=== PATIENT | female | born 1980 | race Hispanic/Latino ===

== ENCOUNTER 2017-07-08 12:10 | Inpatient (IN) | payer OTHER ==
[~2017-07-08] VITALS: Ht 162.6 cm; Wt 97.5 kg
[2017-07-08 13:00] LABS: HEMATOCRIT 33.8 % (36-48); MEAN CORPUSCULAR HEMOGLOBIN 31.8 pg (27.0-33.0); MEAN CORPUSCULAR HGB CONC 35.2 g/dL (32.0-36.0); MEAN CORPUSCULAR VOLUME 90.3 fL (79-99); PLATELET COUNT (AUTO) 235 K/uL (130-400); RED BLOOD CELL COUNT(AUTO) 3.74 MIL/uL (4.00-5.50); RED CELL DISTRIBUTION WIDTH 13.4 % (11.0-15.5); WHITE BLOOD COUNT (AUTO) 8.1 K/uL (4.8-10.8)
[2017-07-08] MEDS ORDERED: ALBUTEROL SULFATE/IPRATROPIUM 103/18 MCG/PUFF 14.7 GM INHR IH SCH (13:00)
[2017-07-08] MEDS ORDERED: CALDOLOR 800MG+NS 250ML 250 ML IV PRN (13:00)
[2017-07-08] MEDS ORDERED: LACTATED RINGERS 1000ML 1,000 ML IV SCH ×2 (13:00→14:35)
[2017-07-08] MEDS ORDERED: CEFAZOLIN SODIUM 1 GM VIAL IVP PRN (13:00)
[2017-07-08] MEDS ORDERED: DURAMORPH PF1 MG/ML 10ML AMP IV ONE (13:34)
[2017-07-08] MEDS ORDERED: OXYTOCIN 10 UNIT/1ML 10ML VIAL ONE (13:38)
[2017-07-08] MEDS ORDERED: CEFAZOLIN SODIUM 1 GM VIAL IVP ONE (13:55)
[2017-07-08] MEDS ORDERED: ALBUTEROL SULFATE 0.083% 2.5 MG/3 ML INH IH SCH (14:00)
[2017-07-08] MEDS ORDERED: FENTANYL CITRATE PF 50 MCG/1 ML 2ML VIAL ONE (14:05)
[2017-07-08] MEDS ORDERED: MIDAZOLAM HCL 1 MG/ML 2ML VIAL ONE (14:05)
[2017-07-08] MEDS ORDERED: OXYTOCIN-LR 20 UNITS/1000 ML 1,000 ML IV PRN (14:35)
[2017-07-08] MEDS ORDERED: LANOLIN 30GM OINTMENT TP PRN (14:45)
[2017-07-08] MEDS ORDERED: DIPHENHYDRAMINE HCL 25 MG CAPSULE PO PRN (14:45)
[2017-07-08] MEDS ORDERED: PROMETHAZINE HCL 25 MG/ML 1ML AMPULE IM PRN ×2 (14:45→15:45)
[2017-07-08] MEDS ORDERED: ACETAMINOPHEN EXTRA STRENGTH 500 MG TABLET PO PRN (14:45)
[2017-07-08] MEDS ORDERED: HYDROCODONE/ACETAMINOPHEN 5/325 MG TAB PO PRN ×3 (14:45→15:45)
[2017-07-08] MEDS ORDERED: MEPERIDINE-PF 75 MG/ML SYG IM PRN (14:45)
[2017-07-08] MEDS ORDERED: ACETAMINOPHEN-CODEINE 300/30MG TAB PO PRN (14:45)
[2017-07-08] MEDS ORDERED: SODIUM CHLORIDE 0.9% 10 ML VIAL IVP PRN (14:45)
[2017-07-08] MEDS ORDERED: BISACODYL 10 MG SUPP.RECT RC PRN (14:45)
[2017-07-08] MEDS ORDERED: DEXTROSE 5 %-0.45 % NACL 1,000 ML IV PRN (14:45)
[2017-07-08] MEDS ORDERED: NALOXONE HCL 0.4 MG/1 ML ML IVP PRN ×2 (15:45)
[2017-07-08] MEDS ORDERED: ONDANSETRON HCL 4 MG/2 ML VIAL IVP PRN ×2 (15:45)
[2017-07-08] MEDS ORDERED: MORPHINE SULFATE 2 MG/ML 1ML SYG IVP PRN (15:45)
[2017-07-08] MEDS ORDERED: DiphenhydrAMINE HCL 50 MG/ML VIAL IVP PRN (15:45)
[2017-07-08] MEDS ORDERED: METOCLOPRAMIDE 10 MG/2 ML VIAL IVP PRN (15:45)
[2017-07-08] MEDS ORDERED: ONDANSETRON HCL 4 MG/2 ML 8 MG in SODIUM CHLORIDE 0.9% 50 ML IVP NR (15:45)
[2017-07-08] MEDS ORDERED: EPHEDRINE SULFATE 50 MG/ML AMPULE IVP PRN (15:45)
[2017-07-08 16:24] VITALS: BP 116/77
[2017-07-08] MEDS: HYDROCODONE/ACETAMINOPHEN 5/325 MG TAB PO PRN (17:02)
[2017-07-08] MEDS ORDERED: OXYTOCIN 10 USP UNITS/ML ONE (18:57)
[2017-07-08 19:18] VITALS: BP 110/68
[2017-07-08] MEDS: DOCUSATE SODIUM 100 MG CAP PO SCH (21:00)
[2017-07-08] MEDS: CALDOLOR 800MG+NS 250ML 250 ML IV SCH (22:35)
[2017-07-08 23:18] VITALS: BP 107/71
[2017-07-09 02:20] VITALS: BP 113/62
[2017-07-09] MEDS: CALDOLOR 800MG+NS 250ML 250 ML IV SCH (06:00)
[2017-07-09] MEDS: IBUPROFEN 800 MG TAB PO SCH ×2 (06:45→13:44)
[2017-07-09 06:46] LABS: HEMATOCRIT 28.9 % (36-48); MEAN CORPUSCULAR HEMOGLOBIN 31.9 pg (27.0-33.0); MEAN CORPUSCULAR HGB CONC 34.6 g/dL (32.0-36.0); MEAN CORPUSCULAR VOLUME 92.1 fL (79-99); PLATELET COUNT (AUTO) 180 K/uL (130-400); RED BLOOD CELL COUNT(AUTO) 3.14 MIL/uL (4.00-5.50); RED CELL DISTRIBUTION WIDTH 13.4 % (11.0-15.5); WHITE BLOOD COUNT (AUTO) 11.2 K/uL (4.8-10.8)
[2017-07-09] MEDS: DOCUSATE SODIUM 100 MG CAP PO SCH (08:05)
[2017-07-09] MEDS: SIMETHICONE 80 MG TAB.CHEW PO PRN ×2 (08:05→13:44)
[2017-07-09] MEDS: HYDROCODONE/ACETAMINOPHEN 5/325 MG TAB PO PRN ×2 (08:15→13:46)
[2017-07-09] MEDS ORDERED: LIDOCAINE 5% TOPICAL PATCH TP SCH (09:00)
[2017-07-09 09:08] VITALS: BP 102/61
[2017-07-09 11:11] VITALS: BP 115/69
[2017-07-09 11:14] LABS: HEPATITIS Bs ANTIGEN SCREEN P Negative (Negative)
[2017-07-09 15:14] VITALS: BP 111/66
[2017-07-09] MEDS ORDERED: DOCU-116 PO (15:19)
[2017-07-09] MEDS ORDERED: MO8B PO (15:20)
[2017-07-09] MEDS ORDERED: ACET1TAB25 PO (15:21)
== END 2017-07-09 16:45 | disposition home or self-care (01) | DRG 766 ==
LOC: OBSVTOIN 12:10 → LDH 12:10 → WSH 16:14
PROVIDERS: ADMIT Obstetrics & Gynecology; ATTEND Obstetrics & Gynecology
PROC: 10D00Z1 Extraction of Products of Conception, Low, Open Approach (ICD-10-PCS; principal; 2017-07-08 13:30)
DX: O36.63X0 Maternal care for excessive fetal growth, third trimester, not applicable or unspecified (principal); O99.824 Streptococcus B carrier state complicating childbirth; Z37.0 Single live birth; Z3A.38 38 weeks gestation of pregnancy
CPT/HCPCS: 36415; 59510; 85027; 86592; 86850; 86900; 86901; 87340; 94640; A4344; A4606; J0690; J1741; J2250; J2274; J2405; J2590; J3010; J7120; Q0163